=== PATIENT | male | born 1990 | race Caucasian/White ===

== ENCOUNTER → 2017-08-21 12:02 | Outpatient (CLI) | payer BC, SELFPAY ==
--- NOTE | 2017-08-21 12:09 | RAD_ITS ---
STUDY: X-RAY - LEFT ANKLE REASON FOR EXAM: Male, 27 years old. Twisted ankle skateboarding. Lateral pain and swelling. TECHNIQUE: view(s) of the ankle. COMPARISON: None. FINDINGS: Normal visualized distal tibia and fibula. Normal medial and lateral malleoli. Normal tibiotalar articulation and ankle mortise. Normal visualized talus and calcaneus. The visualized subtalar, talonavicular, calcaneocuboid and tarsal articulations are normal. There is anterolateral soft tissue swelling. RAD/Ankle min 3 Views IMPRESSION: Soft tissue swelling without fracture or dislocation. Electronically Signed: Ventura Call DO at 23:24 EDT Tel [phone], Service support ,
== END ==
PROVIDERS: Family Provider Family Medicine; PCP Family Medicine; Visit Provider Family Medicine
DX: M25.579 Pain in unspecified ankle and joints of unspecified foot (principal)
CPT/HCPCS: 73610

== ENCOUNTER → 2019-08-26 17:12 | Outpatient (CLI) | payer OTHER, SELFPAY ==
[2019-08-26 18:38] LABS: ALB/GLOB Ratio 1.1 RATIO (0.9-2.4); AST(SGOT) 11 U/L (15-37); Alanine Aminotransfer ALT/SGPT 19 U/L (16-61); Albumin, Serum 3.9 g/dL (3.2-5.0); Alkaline Phosphatase 66 U/L (45-117); Anion Gap 6 (5-15); BUN 21 mg/dL (7-18); BUN/Creat Ratio 17.1 RATIO (10-20); Calcium,Total 8.5 mg/dL (8.5-10.1); Chloride 104 mmol/L (98-107); Creatinine, Serum 1.23 mg/dL (0.70-1.30); EST Glomerular Filtration Rate 74 mL/min (>60); Est Glom Filt Rate - Afr Amer 89 mL/min (>60); Globulin 3.4 g/dL (2.2-4.2); Glucose 92 mg/dL (74-106); Potassium 3.8 mmol/L (3.5-5.1); Protein, Total 7.3 g/dL (6.4-8.2); Sodium Level 137 mmol/L (136-145); Thyroid Stim Hormone (TSH) 1.27 uIU/mL (0.358-3.74)
[2019-08-30 06:07] LABS: Estrogen, Total, Serum 120 pg/mL (40-115)
[2019-08-30 21:17] LABS: Sex Hormone-binding Globulin 24.1 nmol/L (16.5-55.9)
== END ==
PROVIDERS: PCP Family Medicine; Visit Provider Family Medicine
DX: N52.9 Male erectile dysfunction, unspecified (principal)
CPT/HCPCS: 36415; 80053; 82672; 84270; 84403; 84443

== ENCOUNTER → 2019-10-30 16:36 | Outpatient (CLI) | payer OTHER, SELFPAY ==
[2019-10-31 01:33] LABS: Rapid Plasmin Reagin (RPR) NONREACTIVE (NONREACTIVE)
[2019-10-31 09:37] LABS: HIV - WCH Non-Reactive (Nonreactive); Hepatitis B Surface Antigen Non-Reactive (Nonreactive)
[2019-11-03 08:08] LABS: Chlamydia By Nucleic Acid AMP Positive (Negative); Gonococcus By Nucleic Acid AMP Negative (Negative)
[2019-11-03 10:55] LABS: Hepatitis B Core AB IgM Negative (Negative)
== END ==
PROVIDERS: PCP Family Medicine; Referring Provider Family Medicine; Visit Provider Family Medicine
DX: Z11.3 Encounter for screening for infections with a predominantly sexual mode of transmission (principal)
CPT/HCPCS: 36415; 86592; 86703; 86705; 87340; 87491; 87591

== ENCOUNTER → 2019-12-04 16:06 | Outpatient (CLI) | payer OTHER, SELFPAY ==
[2019-12-04 18:49] LABS: Color, Urine Yellow (Yellow); Glucose, Dipstick Normal (Normal); Ketone-Dipstick Negative (Negative); Leukocyte Esterase-Dipstick Negative /ul (Negative); Nitrite-Dipstick Negative (Negative); Occult Blood-Urine Negative /ul (Negative); Protein-Dipstick Negative (Negative); Urine Bilirubin Dipstick Negative (Negative); Urine Clarity Clear (Clear); Urine Urobilinogen Normal (Normal)
[2019-12-04 20:36] LABS: Chlamydia Trachomatis by PCR Negative (Negative); Neisserai gonorrhoeae by PCR Negative (Negative); Probe Check PASS; Sample Adequacy Control PASS; Specimen Processing Control PASS
== END ==
PROVIDERS: PCP Family Medicine; Referring Provider Family Medicine; Visit Provider Family Medicine
DX: N50.819 Testicular pain, unspecified (principal)
CPT/HCPCS: 81002; 87086; 87491; 87591

== ENCOUNTER → 2019-12-11 10:16 | Outpatient (CLI) | payer OTHER, SELFPAY ==
--- NOTE | 2019-12-11 10:18 | RAD_ITS ---
STUDY: X-RAY - LUMBAR SPINE REASON FOR EXAM: Male, 29 years old. LOW BACK PAIN THAT RADIATES DOWN LEFT LEG, NO INJURY TECHNIQUE: 5 view(s) of the lumbar spine were obtained including oblique views. COMPARISON: None FINDINGS: Normal lumbar lordosis. There is no substantial scoliosis. There is a normal alignment of the vertebrae. Normal vertebral bodies and endplates. Normal disc space heights. The soft tissue structures are unremarkable. RAD/L/S Spine Min 4 Views IMPRESSION: Normal x-ray examination of the lumbar spine. Electronically Signed: Pool Young, at 14:10 EDT , Service support ,
== END ==
PROVIDERS: PCP Family Medicine; Referring Provider Family Medicine; Visit Provider Family Medicine
DX: M54.5 Low back pain (principal)
CPT/HCPCS: 72110

== ENCOUNTER → 2024-11-19 | Outpatient (CLI) | payer BC, SELFPAY ==
--- NOTE | 2024-11-19 08:48 | MRI_ITS ---
PROCEDURE: CHEST WITHOUT CONTRAST 11/19/2024 REASON FOR EXAM: UPPER ARM TRAUMA left pectoralis injury COMPARISON: None TECHNIQUE: Procedure Code: MRICH Modality: MR Procedure: CHEST WITHOUT CONTRAST T1, T2, multiplanar and multisequence images were obtained. CONTRAST: None FINDINGS: There is a partial-thickness tear of the clavicular head of the pectoralis, grade 3 strain with lax components. There is hemorrhage extending along the margin into the superficial soft tissues overlying the biceps at the proximal 3rd of the humerus. There is no discrete hematoma. There is normal marrow signal in the humerus. The biceps and deltoid appear intact. There is no effusion at the shoulder. MRI/Chest without Contrast IMPRESSION: There is a partial-thickness tear of the clavicular head of the pectoralis, gra de 3 strain with lax components. There is hemorrhage extending along the margin into the superficial soft tissue s overlying the biceps at the proximal 3rd of the humerus. Reading Location: [facility]
== END | disposition home or self-care (01) ==
PROVIDERS: PCP Family Medicine; Referring Provider Family Medicine; Visit Provider Family Medicine
DX: S29.011S Strain of muscle and tendon of front wall of thorax, sequela (principal)
CPT/HCPCS: 71550

== ENCOUNTER 2024-12-13 05:36 | Day surgery (SDC) | payer BC, SELFPAY ==
[2024-12-13] VITALS (11 sets, daily range): BP systolic 121–147; BP diastolic 67–94; PULSE 61–115; RESP 16–20; TEMP 36.3–37.4; O2SAT 95–100; BMI 24.0
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
[2024-12-13] MEDS: Lactated Ringers 1,000 ML 15 ML IV (06:31)
--- NOTE | 2024-12-13 06:56 | PRE.ANES_ITS ---
ASA Classification* ASA Classification ASA Classification: 2 Assessment & Plan Anesthesia* Anesthesia Assessment Anesthesia Assessment: Discussed sedation and/or anesthesia options, risks, benefits, and alternatives with patient/parents/legal guardian/POA. Questions invited. The patient/parents/legal guardian/POA seems to understand and agrees to proceed with anesthesia plan. Reviewed the physical assessment, medical history, allergy history and patient home medications list prior to surgery/procedure/anesthetic and documented any changes. Performed airway and anesthesia risk assessments. Anesthesia Type Anesthesia Type: General History Source History Obtained from:: Patient and Chart Anesthesia Focused Assessment* Temperature: 97.4 F Pulse Rate: 61 Blood Pressure: 121/67 Respiratory Rate: 16 Pulse Ox: 100 Oxygen Delivery Method: Room Air Airway Assessment Mouth opens: >3 cm Mallampati Score: II Teeth Condition: Chipped/Broken (Tooth #8 was bonded. 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 When Was Last Pacemaker Check QUESTION #4 FULL TEXT: You/Your Family Experience fever (hyperthermia) with Anesthesia Last Oral Intake Last Oral intake: Last Oral Intake NPO since 23:00 12/13/24 06:23 Meds taken in AM with sips of Yes 12/13/24 06:23 water? Meds patient instructed to take am of surgery PONV PONV - electric frying pan repairer: PONV - electric frying pan repairer Female No 12/06/24 10:15 HX of Motion Sickness No 12/06/24 10:15 HX of N/V After Surgery No 12/06/24 10:15 Non-Smoker Yes 12/06/24 10:15 Duration of Surgery greater No 12/06/24 10:15 than 60 minutes Number of Risk Factors 1 12/06/24 10:15 PONV Score Low Risk 12/06/24 10:15 Height & Weight Height & Weight: Anesthesia: Height & Weight Height 5 ft 9 in 12/13/24 06:23 Weight: 73.754 kg 12/13/24 06:23 Body Mass Index (BMI) 24.0 12/13/24 06:23 Respiratory Assessment Respiratory Assessment - electric frying pan repairer: Respiratory Tract Infection Hx - electric frying pan repairer Hx Respiratory Tract Infection No 12/06/24 10:15 STOP Sleep Apnea STOP Sleep Apnea - electric frying pan repairer: STOP Sleep Apnea - electric frying pan repairer Hx Hypertension No 12/06/24 10:15 Hx Sleep Apnea No 12/06/24 10:15 CPAP BIPAP Do you snore loudly (louder No 12/06/24 10:15 than talking or can be heard Do you often feel tired/ No 12/06/24 10:15 fatigued/ sleepy during daytime? Has anyone observed you stop No 12/06/24 10:15 breathing during sleep? STOP Results Negative 12/06/24 10:15 QUESTION #5 FULL TEXT : Do you snore loudly (louder than talking or can be heard through closed doors)? 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 Specify any problems Hx of Preganancy in last 3 No 12/06/24 10:15 Months Nurse Filling Out Transfusion VCHRISTIN 12/06/24 10:15 & Questions: Date: 12/06/24 12/06/24 10:15 Time: 10:16 12/06/24 10:15 Patient unable to answer at this time (ie. confused, unrespo /Reproduction History /Reproductive History - electric frying pan repairer: /Reproductive Hx- electric frying pan repairer Hx Now No 12/06/24 10:15 Gestational Age (in weeks): EDC: Hx Hx Para Hx Section SAB No 12/06/24 10:15 Active Medications Active Medications: Current Medications Generic Name Dose Route Start Last Admin Trade Name Freq PRN Reason Stop Dose Admin Cefazolin Sodium 2 gm/ Sodium 110 mls @ 200 mls/hr 12/13/24 07:30 Chloride IV 12/13/24 08:02 INTRAOP ONE Lactated Ringer's 1,000 mls @ 15 mls/hr 12/13/24 06:00 12/13/24 06:31 IV 15 mls/hr .Q48H ALINA Administration PFSH Medical History Wears contact lenses Alcohol use Nicotine dependence 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 Uriah Elizalde MD) [place] teeth removed Social History Smoking Status: Current every day smoker tobacco type: smokeless tobacco Review of Systems (Anesthesia) ROS Narrative System reviewed and no additional complaints, except as documented.
--- NOTE | 2024-12-13 07:07 | HP.PCM_ITS ---
HPI - General HPI Narrative GRZEGORZ APONTE, is a 34 M who presents for a left pectoralis major repair, possible allograft tissue. No changes to history and physical exam. Left shoulder marked. Risks alternatives benefits discussed as well as postoperative instructions and narcotic counseling given. The patient understands no further questions or concerns and wishes to proceed. MR#: [id number] Acct: [id number] Name: GRZEGORZ APONTE Rep #: [id number] : 1990 Provider: Dr. 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 Raman Noble MD 12/02/24 0814. Part of today?s visit was d ocumented by [ ], acting as scribe. GRZEGORZ APONTE is a 34 year old M here today for Left pec major tear. This happened 6 weeks ago. The patient was wrestling and felt a pop he is not really sure how it happened but it was black and blue. It took a little bit of time to get in for the visit and the MRI. He is [id number]. 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 He notices that this is quite sore there is a obvious defect there when he flexes his pectoralis major. It feels quite weak impossible to do push-ups at this point. Supplemental Info [facility] Imaging Services [address] [place], [place] [address] Chest without Contrast MR#: [id number] Acct: [id number] Name: GRZEGORZ APONTE Rep #: [id number] : 1990 M 34 From: Mac Bass MD PCP: Dr. Pavan King MD Status: REG CLI Study: Chest without Contrast Date of Exam: 11/19/24 Exam# [id number] Ordering Dr: Pavan King MD PROCEDURE: CHEST WITHOUT CONTRAST 11/19/2024 REASON FOR EXAM: UPPER ARM TRAUMA left pectoralis injury COMPARISON: None TECHNIQUE: Procedure Code: MRICH Modality: MR Procedure: CHEST WITHOUT CONTRAST T1, T2, multiplanar and multisequence images were obtained. CONTRAST: None FINDINGS: There is a partial-thickness tear of the clavicular head of the pectoralis, grade 3 strain with lax components. There is hemorrhage extending along the margin into the superficial soft tissues overlying the biceps at the proximal 3rd of the humerus. There is no discrete hematoma. There is normal marrow signal in the humerus. The biceps and deltoid appear intact. There is no effusion at the shoulder. MRI/Chest without Contrast IMPRESSION: There is a partial-thickness tear of the clavicular head of the pectoralis, grade 3 strain with lax components. There is hemorrhage extending along the margin into the superficial soft tissues overlying the biceps at the proximal 3rd of the humerus. Reading Location: [facility] independently reviewed the imaging. Concur with radiologist report. 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 This is now a chronic situation being 6 weeks from the original date of injury. Explained the diagnosis prognosis different treatment options the patient. With continued nonoperative treatment he would likely experience some strength deficits especially with abduction or pushing motions. Given the patient's young age and occupational demands which suggest to fix this to try to return or restore his strength. This may not be up to 100%. And also there is certainly some risks with the procedure fracture drilling tunnels in the bone infection pain stiffness bleeding Bridget tear or failure to heal loss of strength neurovascular injuries or other problems. The patient understands he may also need allograft tissue given that this is a chronic situation I will have an Achilles allograft available but try to avoid using that if possible. Patient understands we will try to get this on for surgery as soon as reasonable for a left pectoralis major repair, possible allograft tissue. Pros and cons risks and benefits were discussed with the patient including but not limited to infection, pain, stiffness, bleeding, damage to surrounding structures, neurovascular injury, recurrence or retear, failure or wear of hardware or fixation, instability, fracture, deep vein thrombosis and pulmonary embolism, anesthetic risks, , patient dissatisfaction, need for further surgery and other risks. Patient understood and wished to proceed with surgery, and signed the informed consent documentation. Ortho Exam General General: Yes no acute distress Neurologic: Yes alert and Yes oriented x3 Psychologic: Yes reasonable and appropriate Left Shoulder Skin/Wound: Yes CDI, No ecchymosis, No erythema and No swelling Testing: No Hawkin's, No Neer's, No Speed's, No TTP Biceps, No TTP AC Joint, Yes AROM-Forward Elevation 0-180, Yes AROM-External Rotation at side 0-60, No empty can, No Coryell, No scapular winging and Yes belly press normal SHOULDER: normal motor and sens to axillary N, MRU and AIN/PIN. Hand warm well perfused normal radial pulse There is a palpable defect and an obvious defect there at the pectoralis major tendon especially when he flexes the pectoralis. I am able to palpate the stump. 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 Uriah Elizalde MD) [place] teeth removed Social History Smoking Status: Current every day smoker tobacco type: smokeless tobacco Vital Signs Vital Signs Vital Signs: 12/13/24 06:22 12/13/24 06:23 12/13/24 07:04 Temperature 97.4 F L 97.4 F L Temperature Source Temporal Pulse Rate 61 61 Respiratory Rate 16 16 Respiratory Pattern Normal Blood Pressure 121/67 H 121/67 H Blood Pressure Mean 85 Blood Pressure Source Monitor Blood Pressure Position Semi-Fowlers Blood Pressure Location Left Arm Pulse Ox 100 100 Oxygen Delivery Method Room Air Room Air Weight Weight: 162 lb 9.6 oz Body Mass Index (BMI) 24.0
[2024-12-13] MEDS: Midazolam 2 MG/2 ML Syringe IV (07:19)
[2024-12-13] MEDS: Lidocaine 1% (5 ml sdv) 5 ML Vial IV (07:25)
[2024-12-13] MEDS: Cefazolin 1 GM/5 ML Vial 2 GM IV (07:30)
[2024-12-13] MEDS: fentaNYL 100 MCG/2 ML Ampul 200 MCG IV (07:42)
[2024-12-13] MEDS: Lactated Ringers 2,000 ML 2000 ML IV (08:28)
--- NOTE | 2024-12-13 09:12 | DCINST_ITS ---
Discharge Instructions Diet Discharge Diet: No restrictions Activity Discharge Activity: May Shower Lifting Restrictions: no lifting over 1 pound, ok to remove sling at rest and keep hand on stomac Additional Activity Instructions:: ok for gentle elbow and hand ROM, dont reach away from body Dressing / Incision Call your doctor if your incision/area has: Continuous Slow Oozing, Sudden Increased Bleeding, Increased Pain/ Swelling, Increased Redness, Foul Smelling Discharge and Swelling at the incision site Call your doctor if you observe: Fever of 101 or Higher, Coldness, Increased Pain and Numbness or Tingling Change Dressing in: leave in place till F/U Cleanse incision/area with: Do not get Incision Wet Follow Up Care Please Follow Up With: Raman Noble MD When: within 2 weeks Test Results: Test results from this visit will be discussed in further detail at your follow- up appointment, if applicable. Discharge Plan Admission Attending Provider: Raman Noble Primary Care Provider: Pavan King Instructions Print Language: Setswana Discharge Orders/Prescriptions Prescriptions: New oxycodone-acetaminophen [Endocet] 5-325 mg tablet 1 tab PO Q4H MDD 6 PRN (Reason: pain) 4 Days Qty: 20 0RF Referrals / Follow Up: Pavan King MD [Primary Care Provider, Family Practice] Raman Noble MD [Med Staff - Active Staff, Orthopedics] Disposition Disposition (needs filled in before D/C Order can be placed): Home, Self Care
--- NOTE | 2024-12-13 09:16 | OP.PCM_ITS ---
Procedures Musculoskeletal 20xxx-29xxx: Other Procedure See Report Operative Report (Standard) Operative Information Date of Procedure: 12/13/24 Pre-Operative Diagnosis: Left pectoralis major tendon rupture Post-Operative Diagnosis: Same Surgery/Procedure Performed: Left pectoralis major tendon repair and allograft tissue foxing painter: Yes Bottle Packer: mello Tasks completed by first assistant manager: Retracting Type of Anesthesia: General and Local RN Documented Start/Stop Times: Operation Date: 12/13/24 07:30 Case Time Into Pre-Op 12/13/24 05:58 Out of Pre-Op 12/13/24 07:16 Anesthesia Start 12/13/24 07:19 Into Room 12/13/24 07:19 Procedure Start 12/13/24 07:48 Procedure End 12/13/24 09:09 Procedure Start Time: 07:48 Procedure Stop Time: 09:09 Select all DRAINS/GRAFTS/IMPLANTS that apply: Graft Graft details: Arthrex acellular dermal allograft 4x7cm Estimated Blood Loss: 100 Specimen collected: No Description of surgery: Patient brought to the operating room theater. Placed supine on the table on the beachchair. General anesthesia induced. 2 g of IV Ancef administered prior to the start of the procedure. Patient sat up 45 degree angle. All bony prominences padded. SCDs on the legs. Opposite side in the well arm singh. Left upper extremity prepped and draped in the usual sterile fashion with chlorhexidine-based prep solution allowing over 3 minutes drying time prior to draping. Preoperative timeout performed to confirm the site patient and surgery. Used the Arthrex arm singh to the patient's left side. I began by palpating the stump of the pectoralis. I made a standard deltopectoral incision at the interval for about length of 4 inches. Carried the dissection down through skin and subcutaneous tissue achieving meticulous hemostasis. Identified the interval between the deltoid fibers of the pectoralis major tendon. Identified the pectoralis major tendon stump. This was had a couple longitudinal splits and had as well as an extensive scar tissue formation to the underlying soft tissues including the conjoined tendon area. Identified the long head of the biceps protected that. Identified the rupture site on the proximal humerus. I mobilized extensive scar tissue. This took about 30 minutes to safely mobilize the scar tissue and identify the pectoralis major tendon stump which actually was good solid tendon but there was some tendon loss due to the scarring and adhesions that had formed as well as the nature of the tear. A freed up scar tissue underneath the tendon as well as superficial to that as well. I tried to get the tendon back down to the tear site but there was about a 2.5 cm gap. As such I elected to use the dermal allograft patch. I kept this in the proper orientation by marking the superior aspect. I laid this on the superior aspect of the tendon. I used Arthrex running #2 FiberWire to tack the graft onto the tendon. Subsequent to this I used the included Arthrex fiber tapes with the pectoralis repair kit. Graft was 4cm from superior to inferior, and 7cm medial to lateral. I did running locking Krak?w type stitch grabbing tendon through the graft all the way along to create 4 suture tails coming out laterally out the undersurface of the graft tendon construct. I was able to achieve about 3.5 cm of graft tendon integration and was very solid when I was testing and pulling on that, with good excursion. I then turned my attention to the humerus. I drilled 2 bicortical holes to prep are for the button site at the site of the former ruptured tedon, and protected the biceps long head tendon, by retracting it medially. I ensured to achieve good spacing between these by about 4 cm to avoid stress riser. I then passed a single limb of each of the sutures from the superior and inferior suture tails through each button x2. I passed this through the button. I passed the button through the far cortex flipped the button and then using alternating half hitches on both buttons secured the tendon down to the humeral site. Then using again the free ends back through the graft and again tied over the graft in a horizontal mattress configuration each of the sutures to again achieve extra compression at the graft site. Excess graft was then trimmed which was about half centimeter. Case terminated wounds thoroughly irrigated. Subcutaneous tissue closed with 2- 0 Vicryl sutures and skin with 3-0 Monocryl. Skin cleaned with red dry dressing. 10 cc of half percent bupivacaine instilled in and around the incision site. Half-inch Steri-Strips applied followed by Adaptic 4 x 4 gauze ABD dressing cloth tape and an abduction pillow sling for the upper extremity. Patient woken up from a general anesthetic transferred off the operating table taken postanesthetic care unit in stable condition. All sponge needle instrument counts were correct no complications plan for the patient discharge home according to day surgery criteria follow-up in the office in 2 weeks time. CPT 80280, mod 22 for chronic rupture with extensive scar tissue release Surgical Findings: As above Complications Complications: No Admit VTE Documentation VTE Present on Admission: No VTE Pharm Prophylaxis ordered?: No Reason prophylaxis not ordered: Treatment Not Indicated
--- NOTE | 2024-12-13 09:30 | PCM.POST.ANE ---
Anesthesia: Postop Eval I Current Vital Signs Temperature: 98.1 F Pulse Rate: 93 Blood Pressure: 147/84 Respiratory Rate: 20 Pulse Ox: 95 Oxygen Delivery Method: Room Air Assessment Airway patent: Yes Spontaneous unlabored respirations: Yes Mental status: Awake and Calm nausea: No Vomiting: No Anesthesia Complication: No Fluid Hydration Crystalloid volume administer (ml): 1,500 Total IV fluid infused: 1,500 Progress Note Anesthesia document: Postop Eval 1 completed: Yes
[2024-12-13] MEDS: HYDROcodone Bitartrate/Apap 5/325 Tablet PO (10:38)
--- NOTE | 2024-12-13 12:03 | POSTOPAN2_ITS ---
Anesthesia Postop Eval I Sum Postop Eval Completion status Anesthesia document: Postop Eval 1 completed: Yes Anesthesia Postop Eval I Summary Anesthesia Postop Eval I Summary: Anesthesia Postop Eval I: Assessment Summary Airway patent Yes 12/13/24 09:31 [email or web address] [email or web address] [email or web address] Spontaneous unlabored Yes 12/13/24 09:31 [email or web address] [email or web address] [email or web address] respirations Mental status Awake,Calm 12/13/24 09:31 [email or web address] [email or web address] [email or web address] nausea No 12/13/24 09:31 MERCURY [email or web address] [email or web address] Vomiting No 12/13/24 09:31 MERCURY [email or web address] [email or web address] Anesthesia Postop Eval I: Fluid Summary Crystalloid volume administer 1,500 12/13/24 09:31 MERCURY [email or web address] [email or web address] (ml) Colloids volume administered ( ml) Blood Product volume administered (ml) Total IV fluid infused 1,500 12/13/24 09:31 MERCURY [email or web address] [email or web address] Anesthesia Postop Eval I: Summary Notes Anesthesia Complication No 12/13/24 09:31 MERCURY [email or web address] [email or web address] Anesthesia Complication Comment: Post-operative progress note Anesthesia: Postop Eval II Evaluation Mental status: Awake Pain Level: 2 nausea: No Vomiting: No
--- NOTE | 2024-12-13 12:03 | PCM.POSTANE2 ---
Anesthesia Postop Eval I Sum Postop Eval Completion status Anesthesia document: Postop Eval 1 completed: Yes Anesthesia Postop Eval I Summary Anesthesia Postop Eval I Summary: Anesthesia Postop Eval I: Assessment Summary Airway patent Yes 12/13/24 09:31 [email or web address] [email or web address] Spontaneous unlabored Yes 12/13/24 09:31 [email or web address] [email or web address] respirations Mental status Awake,Calm 12/13/24 09:31 [email or web address] [email or web address] nausea No 12/13/24 09:31 [email or web address] [email or web address] Vomiting No 12/13/24 09:31 [email or web address] [email or web address] Anesthesia Postop Eval I: Fluid Summary Crystalloid volume administer 1,500 12/13/24 09:31 [email or web address] [email or web address] (ml) Colloids volume administered ( ml) Blood Product volume administered (ml) Total IV fluid infused 1,500 12/13/24 09:31 [email or web address] [email or web address] Anesthesia Postop Eval I: Summary Notes Anesthesia Complication No 12/13/24 09:31 [email or web address] [email or web address] Anesthesia Complication Comment: Post-operative progress note Anesthesia: Postop Eval II Evaluation Mental status: Awake Pain Level: 2 nausea: No Vomiting: No
== END 2024-12-13 10:51 | disposition home or self-care (01) ==
LOC: SDC 05:37 → AC 05:39
PROVIDERS: PCP Family Medicine; Referring Provider Orthopaedic Surgery Sports Medicine; Visit Provider Orthopaedic Surgery Sports Medicine
PROC: (CPT 24341; principal; 2024-12-13 07:15)
DX: S29.011A Strain of muscle and tendon of front wall of thorax, initial encounter (principal); X58.XXXA Exposure to other specified factors, initial encounter; Y93.72 Activity, wrestling; F17.200 Nicotine dependence, unspecified, uncomplicated
CPT/HCPCS: 24341; 20924; C1713; Q4125; A4125; J2405